=== PATIENT | female | born 1950 | race Caucasian/White ===

== ENCOUNTER → 2018-03-06 | Outpatient (CLI) | payer MEDICARE | LOC: M.RAD 13:30 | DX: Z12.31 Encounter for screening mammogram for malignant neoplasm of breast (principal) ==

== ENCOUNTER → 2018-07-28 | Outpatient (CLI) | payer OTHER, MEDICAID | LOC: M.RAD 07-24 10:21 | DX: N64.89 Other specified disorders of breast (principal) ==

== ENCOUNTER 2019-03-03 00:37 | Emergency (ER) | payer OTHER, MEDICAID ==
[~2019-03-03] VITALS: Ht 154.9 cm; Wt 83.5 kg
[2019-03-03] MEDS ORDERED: PROTONIX40 M2 (00:45)
[2019-03-03] MEDS ORDERED: MICARDIS40 MG (00:46)
[2019-03-03 02:57] VITALS: BP 161/93
== END 2019-03-03 02:58 | disposition home or self-care (01) ==
LOC: M.ERS 00:37
DX: J02.9 Acute pharyngitis, unspecified (principal); K21.9 Gastro-esophageal reflux disease without esophagitis; Z91.040 Latex allergy status; Z88.8 Allergy status to other drugs, medicaments and biological substances

== ENCOUNTER → 2019-04-14 | Outpatient (CLI) | payer OTHER ==
[~2019-04-14] MED LIST: MICARDIS40 MG; PROTONIX40 M2
== END ==
LOC: M.CT 13:54
DX: Z13.6 Encounter for screening for cardiovascular disorders (principal)

== ENCOUNTER → 2019-09-28 | Outpatient (CLI) | payer OTHER, MEDICAID ==
[~2019-09-28] MED LIST changes: +BLOOD PRESSURE; +MACROBID 100 M100 M1 PO
== END ==
LOC: M.RAD 13:17
PROVIDERS: ATTEND Internal Medicine Rheumatology
DX: M19.042 Primary osteoarthritis, left hand (principal); M19.041 Primary osteoarthritis, right hand

== ENCOUNTER 2019-10-06 13:55 | Emergency (ER) | payer OTHER, MEDICAID ==
[~2019-10-06] VITALS: Ht 157.5 cm; Wt 83.9 kg
[~2019-10-06 13:55] MED LIST changes: -BLOOD PRESSURE; -MACROBID 100 M100 M1 PO
[2019-10-06] MEDS ORDERED: BLOOD PRESSURE (14:15)
[2019-10-06 16:15] LABS: ABSOLUTE EOSINOPHILS 0.1 thou/uL (0.0-0.7); ABSOLUTE LYMPHOCYTES 1.8 thou/uL (0.8-5.3); ABSOLUTE MONOCYTES 0.5 thou/uL (0.0-1.2); ABSOLUTE NEUTROPHILS 3.6 thou/uL (1.6-8.1); BASOPHILS 0.5 %; EOSINOPHILS 2.2 %; HEMATOCRIT 43.6 % (37.0-47.0); LYMPHOCYTES 30.3 %; MCH 31.7 pg (26.0-34.0); MCHC 34.5 g/dL (28.0-37.0); MONOCYTES 8.6 %; MPV 8.5 fl. (7.2-11.1); NUCLEATED RBCS 0 /100WBC; PLATELET COUNT* 203 thou/uL (150-400); POLYS 58.4 %; RBC 4.75 mil/uL (4.20-5.00); RDW-CV 13.7 % (10.5-14.5); WBC 6.1 thou/uL (4.0-11.0)
[2019-10-06 16:30] LABS: CALCIUM 8.6 mg/dL (8.5-10.1); CREATININE 0.7 mg/dL (0.6-1.3); POTASSIUM 3.7 mmol/L (3.5-5.1)
[2019-10-06 16:42] LABS: ALBUMIN 3.3 g/dL (3.4-5.0); TOTAL BILIRUBIN 0.5 mg/dL (<0.1-1.0)
[2019-10-06 17:07] LABS: URINE BLOOD NEGATIVE (Negative); URINE CLARITY CLEAR; URINE COLOR YELLOW; URINE GLUCOSE-RANDOM NEGATIVE (Negative); URINE KETONES TRACE (Negative); URINE NITRITE-REFLEX NEGATIVE (Negative); URINE PROTEIN NEGATIVE (Negative); URINE SPECIFIC GRAVITY >= 1.030 (1.005-1.030); URINE UROBILINOGEN 0.2 E.U./dl (0.2-1.0)
[2019-10-06 17:08] LABS: URINE BILIRUBIN 1+ (Negative); URINE LEUKOCYTES-REFLEX 2+ (Negative)
[2019-10-06 17:10] LABS: ICTOTEST (BILI CONFIRMATORY) Negative (Negative)
[2019-10-06 17:17] LABS: BACTERIA-REFLEX 1-9 Few /HPF (None Seen); MUCUS 0-3 Light strn/LPF (None Seen); SQUAMOUS >10 Many /LPF (0-3); URINE WBC-REFLEX 6-15 Few /HPF (0-5)
[2019-10-06 17:18] LABS: CASTS None Seen /LPF (None Seen); CRYSTALS None Seen /LPF (None Seen); URINE RBC None Seen /HPF (0-2)
[2019-10-06] MEDS ORDERED: MACROBID 100 M100 M1 PO (18:03)
[2019-10-06 18:21] VITALS: BP 135/81
--- NOTE | 2019-10-07 10:36 | EKG ---
[place] [address] ELECTROCARDIOGRAM REPORT Name: LIDIA TURCIOS Room: [facility]#: [id number] Admission: 10/06/19 Attend Phys: Discharge: 10/06/19 Date of : 54 Date of Service: 10/06/19 1418 Report #: [id number] THIS REPORT FOR: //name// [facility] ED Test Date: 2019-10-06 Test Time: 14:18:19 Pat Name: LIDIA TURCIOS Department: Room: Gender: [employer]: REINOSO : 1950 Requested By: Concetta Vicente Order Number: [id number] Pratik MD: Dallin Day Measurements Intervals [place] Rate: 63 P: 28 AR: 193 QRS: -35 QRSD: 108 T: 27 QT: 424 QTc: 435 Interpretive Statements Sinus rhythm Left axis deviation Low voltage, precordial leads Baseline wander in lead(s) II,III,aVF No previous ECG available for comparison Electronically Signed On 10-07-2019 10:36:34 CDT by Dallin Day [email or web address] <ELECTRONICALLY SIGNED> By: Dallin Day MD, [facility] 10/07/19 1036 1418 1418 Dallin Day MD, [facility] /EPI
== END 2019-10-06 18:23 | disposition home or self-care (01) ==
LOC: M.ERS 13:55
PROVIDERS: Personal Emergency Response Attendant
DX: I10 Essential (primary) hypertension (principal); N39.0 Urinary tract infection, site not specified; K21.9 Gastro-esophageal reflux disease without esophagitis; Z91.040 Latex allergy status; Z88.8 Allergy status to other drugs, medicaments and biological substances

== ENCOUNTER → 2020-08-26 | Outpatient (CLI) | payer OTHER, MEDICAID ==
[~2020-08-26] MED LIST changes: +BLOOD PRESSURE; +MACROBID 100 M100 M1 PO; +VISTARIL 25 MG25 M1 PO
--- NOTE | 2020-09-27 07:04 | SLEEP ---
[address] [address] SLEEP STUDY REPORT Name: LIDIA TURCIOS Room: [facility]#: [id number] Admission: 08/26/20 Attend Phys: Alice Torres Discharge: Date of : 54 Report #: [id number] THIS REPORT FOR: cc: Alice Torres, Irineo Quiroga MD ~ DATE OF STUDY: 08/26/2020 SLEEP STUDY INDICATION FOR SLEEP STUDY: Fatigue, daytime sleepiness, insomnia, snoring. INTERPRETATION: Total duration of the study is 398 minutes out of which she was asleep for 335 minutes with an overall sleep efficiency of 84.1%. Sleep onset initially occurred 4 minutes after lying down in bed and REM onset was 209 minutes after sleep onset. N1 sleep duration was 21%, N2 duration was 38%, N3 duration was 27%. REM duration was 15%. We recorded multiple sleep-related respiratory events during this time. These included 25 obstructive apneas in addition to 1 central apnea and 35 hypopneas. Overall apnea-hypopnea index was 10.9. Body position data indicates the patient was observed in the supine position for only 5.5 minutes. Rest of the time the patient was either on the right or left side. Mean heart rate was 62. Periodic limb movement index was 7.3. Arousal index was 20. There were also multiple desaturations recorded. Her O2 saturation mostly was maintained at or above 88%. The patient spent 4.3 minutes below an O2 saturation of 90%. IMPRESSION: Obstructive sleep apnea with an apnea-hypopnea index of 10.9, only 5.5 minutes of supine sleep was recorded during the sleep study. RECOMMENDATIONS: 1. Recommend proceeding with positive airway pressure therapy. Options include the use of a CPAP auto titrated device first or proceeding to an in-lab sleep study for positive airway pressure titration. Clinical correlation is advised. 2. If clinically appropriate, then recommend weight loss. 3. Recommend avoiding driving and other activities requiring vigilance if drowsy. This entire sleep study was reviewed by board certified sleep physician. <ELECTRONICALLY SIGNED> By: Irineo Riojas MD 09/27/20 [id number] Riojas MD /nt
== END ==
LOC: M.SLEEPLAB 21:00
PROVIDERS: ATTEND Nurse Practitioner Family
DX: G47.33 Obstructive sleep apnea (adult) (pediatric) (principal); R30.0 Dysuria; K21.9 Gastro-esophageal reflux disease without esophagitis; I10 Essential (primary) hypertension; E66.9 Obesity, unspecified

== ENCOUNTER 2020-09-09 12:12 | Emergency (ER) | payer OTHER, MEDICAID ==
[~2020-09-09] VITALS: Ht 154.9 cm; Wt 72.6 kg
[~2020-09-09 12:12] MED LIST changes: -VISTARIL 25 MG25 M1 PO
[2020-09-09] MEDS ORDERED: VISTARIL 25 MG25 M1 PO (13:51)
[2020-09-09 14:16] VITALS: BP 168/87
== END 2020-09-09 14:17 | disposition home or self-care (01) ==
LOC: M.ERS 12:12
DX: F41.9 Anxiety disorder, unspecified (principal); K21.9 Gastro-esophageal reflux disease without esophagitis; Z91.040 Latex allergy status; Z88.8 Allergy status to other drugs, medicaments and biological substances